=== PATIENT | male | born 1980 | race Caucasian/White ===

== ENCOUNTER 2016-09-29 17:16 | Emergency (ER) | payer MEDICAID, OTHER ==
[~2016-09-29] VITALS: Ht 172.7 cm; Wt 74.8 kg
--- NOTE | 2016-09-29 17:21 | NUR ---
PRESENTS SELDF TO ED DUE TO ASTHMA X 1 DAY, PATIENT SATING WELL ON ROOM AIR HOWEVER PATIENT APPEARS IN MILD DISTRESS,. NO CHEST PAIN OR DISCOMFORT NOTED. SKIN IS WARM TO TOUCH AND NON DIAPHORETIC. AFEBRILE. VSS
[2016-09-29] MEDS ORDERED: ALBUTEROL FS 2.5 MG/3 ML VIAL.NEB ONE (17:26)
[2016-09-29] MEDS ORDERED: IPRATROPIUM NEB FS 0.5 MG/2.5 ML AMPUL.NEB ONE (17:27)
[2016-09-29] MEDS ORDERED: ALBUTEROL FS 2.5 MG/0.5 ML VIAL.NEB NEB ONE (17:30)
[2016-09-29] MEDS ORDERED: IV NS 0.9% 1,000 ML BAG IV ONE (17:30)
[2016-09-29] MEDS ORDERED: IPRATROPIUM NEB FS 0.5 MG/2.5 ML AMPUL.NEB NEB ONE (17:30)
--- NOTE | 2016-09-29 17:35 | NUR ---
RT AT BEDSIDE FOR BREATHING TREATMENT
[2016-09-29] MEDS ORDERED: methylPREDNISolone SOD SUCC 125 MG/2ML VIAL ONE (17:38)
[2016-09-29] MEDS ORDERED: IV SET PRIMARY 1 EA INFUS.SET MC ONE (17:39)
[2016-09-29] MEDS ORDERED: IV NS 0.9% 1,000 ML ONE (17:39)
[2016-09-29] MEDS: methylPREDNISolone SOD SUCC 125 MG/2ML VIAL IV ONE ×2 (17:43→17:44)
--- NOTE | 2016-09-29 17:44 | NUR ---
MEDICATED PT ORDERED
[2016-09-29 19:02] VITALS: BP 130/78
--- NOTE | 2016-09-29 19:03 | NUR ---
Patient discharged to home in stable condition. Written and verbal after care instructions given. Patient verbalizes understanding of instruction.IV removed. Catheter intact and site benign. Pressure and 4x4 applied to site. No bleeding noted.
== END 2016-09-29 19:03 | disposition home or self-care (01) ==
LOC: ER 17:19
DX: J45.909 Unspecified asthma, uncomplicated (principal); I10 Essential (primary) hypertension; F17.210 Nicotine dependence, cigarettes, uncomplicated
CPT/HCPCS: 71010; 94644; 96361; 96374; 99285; A4606; J2930; J7030; Z7610

== ENCOUNTER 2016-10-25 15:42 | Emergency (ER) | payer OTHER ==
[~2016-10-25] VITALS: Ht 177.8 cm; Wt 79.4 kg
[2016-10-25 15:44] VITALS: BP 134/63
[2016-10-25] MEDS ORDERED: predniSONE 20 MG TABLET ONE (15:55)
[2016-10-25] MEDS ORDERED: IPRATROPIUM NEB FS 0.5 MG/2.5 ML AMPUL.NEB ONE (15:57)
[2016-10-25] MEDS ORDERED: ALBUTEROL FS 2.5 MG/3 ML VIAL.NEB ONE (15:57)
[2016-10-25] MEDS ORDERED: IPRATROPIUM NEB FS 0.5 MG/2.5 ML AMPUL.NEB NEB ONE (16:00)
[2016-10-25] MEDS ORDERED: predniSONE 20 MG TABLET PO ONE (16:00)
[2016-10-25] MEDS ORDERED: ALBUTEROL FS 2.5 MG/3 ML VIAL.NEB NEB ONE (16:00)
== END 2016-10-25 16:45 | disposition home or self-care (01) ==
LOC: ER 15:45
DX: J45.909 Unspecified asthma, uncomplicated (principal); I10 Essential (primary) hypertension; F17.210 Nicotine dependence, cigarettes, uncomplicated; Z91.048 Other nonmedicinal substance allergy status
CPT/HCPCS: A4606; Z7610

== ENCOUNTER 2017-03-14 18:59 | Emergency (ER) | payer OTHER ==
[~2017-03-14] VITALS: Ht 180.3 cm; Wt 81.6 kg
[2017-03-14 19:06] VITALS: BP 140/93
== END 2017-03-14 19:20 | disposition home or self-care (01) ==
LOC: ER 19:02
DX: J45.909 Unspecified asthma, uncomplicated (principal); I10 Essential (primary) hypertension
CPT/HCPCS: A4606; Z7610

== ENCOUNTER 2017-04-05 19:17 | Emergency (ER) | payer OTHER ==
[~2017-04-05] VITALS: Ht 180.3 cm; Wt 83.9 kg
[2017-04-05 19:24] VITALS: BP 144/80
== END 2017-04-05 20:04 | disposition home or self-care (01) ==
LOC: ER 19:21
DX: Z76.0 Encounter for issue of repeat prescription (principal); R06.02 Shortness of breath; J45.909 Unspecified asthma, uncomplicated; I10 Essential (primary) hypertension; F19.10 Other psychoactive substance abuse, uncomplicated; F17.210 Nicotine dependence, cigarettes, uncomplicated; Z88.8 Allergy status to other drugs, medicaments and biological substances
CPT/HCPCS: 99283; A4606; Z7610

== ENCOUNTER 2017-05-26 18:40 | Emergency (ER) | payer OTHER ==
[~2017-05-26] VITALS: Ht 180.3 cm; Wt 83.5 kg
--- NOTE | 2017-05-26 18:45 | NUR ---
CALLED PT NAME IN WR. NO RESPONSE AT THIS TIME. PER ADMITTING PT IN RESTROOM
[2017-05-26 19:04] VITALS: BP 140/92
== END 2017-05-26 19:21 | disposition home or self-care (01) ==
LOC: ER 18:42
DX: Z76.0 Encounter for issue of repeat prescription (principal); J45.901 Unspecified asthma with (acute) exacerbation; I10 Essential (primary) hypertension; F19.10 Other psychoactive substance abuse, uncomplicated; F17.210 Nicotine dependence, cigarettes, uncomplicated
CPT/HCPCS: A4606; Z7610

== ENCOUNTER 2017-06-30 01:49 | Emergency (ER) | payer OTHER ==
[~2017-06-30] VITALS: Ht 180.3 cm; Wt 88.5 kg
[2017-06-30 01:55] VITALS: BP 145/93
--- NOTE | 2017-06-30 02:05 | NUR ---
DR. ELIZABETH AT BEDSIDE FOR EVAL.
== END 2017-06-30 02:13 | disposition home or self-care (01) ==
LOC: ER 01:49
DX: Z76.0 Encounter for issue of repeat prescription (principal); I10 Essential (primary) hypertension; J45.909 Unspecified asthma, uncomplicated; F17.210 Nicotine dependence, cigarettes, uncomplicated
CPT/HCPCS: 99283; A4606; Z7610

== ENCOUNTER 2017-07-30 05:07 | Emergency (ER) | payer OTHER ==
[~2017-07-30] VITALS: Ht 180.3 cm; Wt 88.5 kg
[2017-07-30 05:07] VITALS: BP 138/76
[2017-07-30] MEDS ORDERED: IBUPROFEN 400 MG TABLET ONE (05:18)
[2017-07-30] MEDS ORDERED: IBUPROFEN 400 MG TABLET PO ONE (05:30)
== END 2017-07-30 05:40 | disposition home or self-care (01) ==
LOC: ER 05:10
DX: F41.9 Anxiety disorder, unspecified (principal); I10 Essential (primary) hypertension; J45.909 Unspecified asthma, uncomplicated; F17.200 Nicotine dependence, unspecified, uncomplicated
CPT/HCPCS: 99284; A4606; Z7610

== ENCOUNTER 2019-03-23 11:32 | Emergency (ER) | payer OTHER ==
[~2019-03-23] VITALS: Ht 188 cm; Wt 88.5 kg
--- NOTE | 2019-03-23 11:35 | NUR ---
called for triage not in the waiting room.
--- NOTE | 2019-03-23 11:45 | NUR ---
"C/O CHEST PAIN RADIATING TO UPPER BACK 11/29 PS" PT AAOX4, PT ON MONITOR, VSS, NAD NOTED, PENDING MD SPRING
[2019-03-23] MEDS ORDERED: Magnesium 1GM/D5W 100ML PREMIX 200 ML IV ONE (12:23)
[2019-03-23] MEDS ORDERED: IPRATROPIUM NEB FS 0.5 MG/2.5 ML AMPUL.NEB ONE (12:29)
[2019-03-23] MEDS ORDERED: ALBUTEROL FS 2.5 MG/3 ML VIAL.NEB ONE (12:29)
[2019-03-23] MEDS ORDERED: ALBUTEROL FS 2.5 MG/3 ML VIAL.NEB NEB ONE (12:30)
[2019-03-23] MEDS ORDERED: methylPREDNISolone SOD SUCC 125 MG/2ML VIAL IV ONE (12:30)
[2019-03-23] MEDS ORDERED: IPRATROPIUM NEB FS 0.5 MG/2.5 ML AMPUL.NEB NEB ONE (12:30)
[2019-03-23] MEDS ORDERED: Magnesium 1GM/D5W 100ML PREMIX 100 ML IV ONE (12:32)
[2019-03-23] MEDS ORDERED: methylPREDNISolone SOD SUCC 125 MG/2ML VIAL ONE (12:32)
[2019-03-23 12:41] LABS: BASOPHILS # (AUTO) 0.1 /CMM (0.0-0.2); BASOPHILS % (AUTO) 1.1 % (0.0-2.0); EOSINOPHILS % (AUTO) 3.1 % (0.0-6.0); HEMATOCRIT 43 % (39-51); HEMOGLOBIN 14.5 g/dL (13.5-17.5); LYMPHOCYTES # (AUTO) 3.3 /CMM (0.8-4.8); LYMPHOCYTES % (AUTO) 29.6 % (20.0-44.0); MEAN CORPUSCULAR HGB CONC 34 g/dl (31.0-36.0); MEAN CORPUSCULAR VOLUME 85 fL (80-96); MONOCYTES # (AUTO) 0.9 /CMM (0.1-1.30); NEUTROPHILS # (AUTO) 6.4 /CMM (1.8-8.9); NEUTROPHILS % (AUTO) 58.2 % (43.0-81.0); PLATELET COUNT (AUTO) 399 /CMM (150-450); RED BLOOD CELL COUNT(AUTO) 5.03 MIL/uL (4.5-6.0)
[2019-03-23 12:46] LABS: CALCIUM, SERUM 9.3 mg/dL (8.5-10.1); CREATININE 1.5 mg/dL (0.6-1.3); POTASSIUM 3.8 mmol/L (3.5-5.1)
[2019-03-23 14:00] VITALS: BP 132/95
--- NOTE | 2019-03-23 14:47 | NUR ---
Patient discharged to home in stable condition. Written and verbal after care instructions given. Patient verbalizes understanding of instruction. IV removed. Catheter intact and site benign. Pressure and 4x4 applied to site. No bleeding noted.
== END 2019-03-23 14:49 | disposition home or self-care (01) ==
LOC: ER 11:32
DX: J45.901 Unspecified asthma with (acute) exacerbation (principal); I10 Essential (primary) hypertension; F17.200 Nicotine dependence, unspecified, uncomplicated
CPT/HCPCS: 36415; 71045; 80048; 85025; 93005; 94640; 96365; 96375; 99284; J2930; J3475

== ENCOUNTER 2019-12-06 10:17 | Emergency (ER) | payer OTHER ==
[~2019-12-06] VITALS: Ht 180.3 cm; Wt 88.5 kg
--- NOTE | 2019-12-06 10:20 | NUR ---
patient came in to the er c/o RLQ pain, nausea vomiting x 2 weeks, 7/10 pain scale. On room air, breathing evenly and unlabored. connected to the monitor and pulse ox. kept comfortable, will continue to monitor accordingly.
[2019-12-06] MEDS ORDERED: ONDANSETRON HCL/PF 4 MG/2 ML VIAL ONE (10:43)
[2019-12-06] MEDS ORDERED: MORPHINE SULFATE INJ 4 MG/ML DISP.SYRIN ONE (10:43)
[2019-12-06 10:58] LABS: BASOPHILS # (AUTO) 0.1 /CMM (0.0-0.2); BASOPHILS % (AUTO) 0.7 % (0.0-2.0); EOSINOPHILS % (AUTO) 2.7 % (0.0-6.0); HEMATOCRIT 46 % (39-51); HEMOGLOBIN 14.7 g/dL (13.5-17.5); LYMPHOCYTES # (AUTO) 2.6 /CMM (0.8-4.8); LYMPHOCYTES % (AUTO) 18.6 % (20.0-44.0); MEAN CORPUSCULAR HGB CONC 32 g/dl (31.0-36.0); MEAN CORPUSCULAR VOLUME 84 fL (80-96); MONOCYTES # (AUTO) 1.2 /CMM (0.1-1.30); MONOCYTES % (AUTO) 8.2 % (2.0-12.0); NEUTROPHILS # (AUTO) 9.9 /CMM (1.8-8.9); NEUTROPHILS % (AUTO) 69.8 % (43.0-81.0); PLATELET COUNT (AUTO) 431 /CMM (150-450); RED BLOOD CELL COUNT(AUTO) 5.52 MIL/uL (4.5-6.0); WHITE BLOOD COUNT (AUTO) 14.2 K/uL (4.3-11.0)
[2019-12-06] MEDS ORDERED: IV NS 0.9% 1,000 ML BAG IV ONE (11:00)
[2019-12-06] MEDS ORDERED: MORPHINE SULFATE INJ 2 MG/ML DISP.SYRIN IV ONE (11:00)
[2019-12-06] MEDS ORDERED: ONDANSETRON HCL/PF 4 MG/2 ML VIAL IVP ONE (11:00)
[2019-12-06 11:03] LABS: CALCIUM, SERUM 9.3 mg/dL (8.5-10.1); CREATININE 1.3 mg/dL (0.6-1.3); POTASSIUM 4.3 mmol/L (3.5-5.1)
[2019-12-06 11:08] LABS: ALBUMIN 3.4 g/dL (3.4-5.0); BILIRUBIN,DIRECT 0.3 mg/dL (0.0-0.2); BILIRUBIN,TOTAL 1.1 mg/dL (0.2-1.0)
[2019-12-06 12:16] LABS: APPEARANCE,URINE Clear (CLEAR); BILIRUBIN,URINE Negative (NEGATIVE); BLOOD, URINE Negative Ery/uL (NEGATIVE); COLOR,URINE Yellow (YELLOW); KETONES,URINE Negative (NEGATIVE); LEUKOCYTE ESTERASE ,URINE Negative (NEGATIVE); NITRITE, URINE Negative (NEGATIVE); PROTEIN,URINE Negative (NEGATIVE); UGLUCOSE Negative (NEGATIVE)
[2019-12-06 12:25] LABS: BACTERIA,URINE Rare /HPF (None Seen); RBC,URINE 0-2 /HPF (0-2); SQUAMOUS EPITHELIAL CELL,UR Rare /HPF (None Seen); WBC,URINE 0-2 /HPF (0-3)
--- NOTE | 2019-12-06 12:55 | NUR ---
GAVE MOVESHEET AND CLINICALS TO ADMITTING FOR INSURANCE AUTH
--- NOTE | 2019-12-06 13:15 | NUR ---
Nik levin in [facility] - 12/06/19 at 1339 by MARIS GAVE MOVESHEET AND CLINICALS TO ADMITTING FOR INSURANCE AUTH
--- NOTE | 2019-12-06 15:10 | NUR ---
CALLED [facility] PAGED SHELL
--- NOTE | 2019-12-06 15:26 | NUR ---
SPOKE TO [facility], [place], [facility], STATES WILL LOOK FOR OUTPATIENT CANCER TX FOR PT, FAXED CLINICALS
--- NOTE | 2019-12-06 15:28 | NUR ---
PER DR CHANEY, PATIENT DOESN'T NEED TO BE ADMITTED BUT NEEDS AN APPOINTMENT FOR AN ONCOLOGY CLINIC AND [facility] REINSPECTOR ARE TRYING TO SECURE.
--- NOTE | 2019-12-06 16:33 | NUR ---
oncologist MD Dr. Hastings appointment date thursday12/13/19 9am [phone] eileen
[2019-12-06 17:26] VITALS: BP 140/71
--- NOTE | 2019-12-06 17:26 | NUR ---
Patient discharged to home in stable condition. Written and verbal after care instructions given. Patient verbalizes understanding of instruction.
== END 2019-12-06 17:26 | disposition home or self-care (01) ==
LOC: ER 10:18
DX: R10.31 Right lower quadrant pain (principal); K63.9 Disease of intestine, unspecified; I10 Essential (primary) hypertension; J45.909 Unspecified asthma, uncomplicated; F17.200 Nicotine dependence, unspecified, uncomplicated
CPT/HCPCS: 36415; 74177; 80048; 80076; 81001; 83690; 85025; 87081; 96361; 96374; 96375; 99285; J2270; J2405; J7030; 81000-TC

== ENCOUNTER 2019-12-30 10:34 | Emergency (ER) | payer OTHER ==
[~2019-12-30] VITALS: Ht 177.8 cm; Wt 74.4 kg
--- NOTE | 2019-12-30 10:54 | NUR ---
DR MARCANO AT BEDSIDE FOR EVAL.
--- NOTE | 2019-12-30 11:00 | NUR ---
URINE SPECIMEN COLLECTED AND SENT TO LAB.
[2019-12-30 11:08] LABS: APPEARANCE,URINE Slightly Cloudy (CLEAR); BILIRUBIN,URINE Negative (NEGATIVE); BLOOD, URINE Large Ery/uL (NEGATIVE); COLOR,URINE Dark (YELLOW); KETONES,URINE Negative (NEGATIVE); LEUKOCYTE ESTERASE ,URINE Negative (NEGATIVE); NITRITE, URINE Negative (NEGATIVE); PROTEIN,URINE 30 mg/dl (NEGATIVE); UGLUCOSE Negative (NEGATIVE)
[2019-12-30 11:10] LABS: RBC,URINE TOO NUMEROUS TO COUN /HPF (0-2)
[2019-12-30 11:11] LABS: BACTERIA,URINE Rare /HPF (None Seen); SQUAMOUS EPITHELIAL CELL,UR Few /HPF (None Seen)
[2019-12-30] MEDS ORDERED: KETOROLAC TROMETHAMINE 15 MG/ML VIAL ONE (11:32)
[2019-12-30] MEDS: KETOROLAC TROMETHAMINE INJ 30 MG/ML VIAL IV ONE (11:36)
[2019-12-30 11:49] LABS: BASOPHILS # (AUTO) 0.1 /CMM (0.0-0.2); BASOPHILS % (AUTO) 0.9 % (0.0-2.0); EOSINOPHILS % (AUTO) 0.9 % (0.0-6.0); HEMATOCRIT 42 % (39-51); HEMOGLOBIN 13.7 g/dL (13.5-17.5); LYMPHOCYTES % (AUTO) 15.8 % (20.0-44.0); MEAN CORPUSCULAR HGB CONC 33 g/dl (31.0-36.0); MEAN CORPUSCULAR VOLUME 82 fL (80-96); MONOCYTES % (AUTO) 8.1 % (2.0-12.0); NEUTROPHILS # (AUTO) 9.4 /CMM (1.8-8.9); NEUTROPHILS % (AUTO) 74.3 % (43.0-81.0); PLATELET COUNT (AUTO) 394 /CMM (150-450); RED BLOOD CELL COUNT(AUTO) 5.09 MIL/uL (4.5-6.0); WHITE BLOOD COUNT (AUTO) 12.7 K/uL (4.3-11.0)
[2019-12-30 11:52] LABS: CALCIUM, SERUM 8.7 mg/dL (8.5-10.1); CREATININE 1.3 mg/dL (0.6-1.3); POTASSIUM 4.2 mmol/L (3.5-5.1)
[2019-12-30 11:57] LABS: ALBUMIN 3.1 g/dL (3.4-5.0); BILIRUBIN,TOTAL 1.5 mg/dL (0.2-1.0); TOTAL PROTEIN, SERUM 8.2 g/dL (6.4-8.2)
[2019-12-30] MEDS ORDERED: ONDANSETRON HCL/PF 4 MG/2 ML VIAL ONE (12:05)
[2019-12-30] MEDS ORDERED: MORPHINE SULFATE INJ 4 MG/ML DISP.SYRIN ONE (12:06)
[2019-12-30] MEDS: IV NS 0.9% 1,000 ML IV ONE (12:12)
[2019-12-30] MEDS: ONDANSETRON HCL/PF 4 MG/2 ML VIAL IV ONE (12:12)
[2019-12-30] MEDS: MORPHINE SULFATE INJ 2 MG/ML DISP.SYRIN IV ONE (12:13)
--- NOTE | 2019-12-30 12:14 | NUR ---
PT TO RADIOLOGY FOR ABDOMINAL CT SCAN VIA WHEELCHAIR.
[2019-12-30] MEDS ORDERED: IOHEXOL-300 100 ML VIAL IV ONE (12:16)
[2019-12-30] MEDS ORDERED: IV NS 0.9% 250 ML IV ONE (12:16)
[2019-12-30] MEDS ORDERED: CT SWABBABLE VALVE TRANS SET 1 EA INFUS.SET MC ONE (12:16)
[2019-12-30 14:09] VITALS: BP 145/82
== END 2019-12-30 14:13 | disposition home or self-care (01) ==
LOC: ER 10:37
DX: R31.9 Hematuria, unspecified (principal); G89.29 Other chronic pain; R10.31 Right lower quadrant pain; E80.6 Other disorders of bilirubin metabolism; R74.0 Nonspecific elevation of levels of transaminase and lactic acid dehydrogenase [LDH]; C78.7 Secondary malignant neoplasm of liver and intrahepatic bile duct; C18.9 Malignant neoplasm of colon, unspecified; J45.909 Unspecified asthma, uncomplicated; I10 Essential (primary) hypertension
CPT/HCPCS: 36415; 74177; 80053; 81001; 85025; 96372; 96374; 96375; 99285; J1885; J2270; J2405; J7030; J7050; Q9967; 81000-TC

== ENCOUNTER 2020-02-18 17:34 | Emergency (ER) | payer OTHER ==
[~2020-02-18] VITALS: Ht 177.8 cm; Wt 86.2 kg
[2020-02-18 18:47] LABS: OCCULT BLOOD STOOL NEGATIVE (NEGATIVE)
--- NOTE | 2020-02-18 18:56 | NUR ---
pt r ec'd to er c/o no em for 2 days vomitted once today abd pain5/10 iv started 20g rt ac labs drawn sent o lab
[2020-02-18 19:12] LABS: BASOPHILS # (AUTO) 0.1 /CMM (0.0-0.2); BASOPHILS % (AUTO) 0.8 % (0.0-2.0); EOSINOPHILS % (AUTO) 1.3 % (0.0-6.0); HEMATOCRIT 40 % (39-51); HEMOGLOBIN 12.7 g/dL (13.5-17.5); LYMPHOCYTES # (AUTO) 2.2 /CMM (0.8-4.8); MEAN CORPUSCULAR HGB CONC 32 g/dl (31.0-36.0); MEAN CORPUSCULAR VOLUME 80 fL (80-96); MONOCYTES # (AUTO) 1.2 /CMM (0.1-1.30); MONOCYTES % (AUTO) 7.7 % (2.0-12.0); NEUTROPHILS # (AUTO) 11.9 /CMM (1.8-8.9); NEUTROPHILS % (AUTO) 76.2 % (43.0-81.0); PLATELET COUNT (AUTO) 425 /CMM (150-450); RED BLOOD CELL COUNT(AUTO) 5.05 MIL/uL (4.5-6.0); WHITE BLOOD COUNT (AUTO) 15.6 K/uL (4.3-11.0)
[2020-02-18 19:15] LABS: CALCIUM, SERUM 9.1 mg/dL (8.5-10.1); CREATININE 1.1 mg/dL (0.6-1.3); POTASSIUM 4.1 mmol/L (3.5-5.1)
[2020-02-18 19:19] LABS: ALBUMIN 2.9 g/dL (3.4-5.0); BILIRUBIN,DIRECT 0.5 mg/dL (0.0-0.2); BILIRUBIN,TOTAL 1.2 mg/dL (0.2-1.0); TOTAL PROTEIN, SERUM 9.1 g/dL (6.4-8.2)
--- NOTE | 2020-02-18 19:52 | NUR ---
Patient discharged to home in stable condition. Written and verbal after care instructions given. Patient verbalizes understanding of instruction.
--- NOTE | 2020-02-18 19:52 | NUR ---
IV removed. Catheter intact and site benign. Pressure and 4x4 applied to site. No bleeding noted.
[2020-02-18 21:09] VITALS: BP 133/78
== END 2020-02-18 19:52 | disposition home or self-care (01) ==
LOC: ER 17:41
DX: K59.00 Constipation, unspecified (principal); G89.29 Other chronic pain; R10.31 Right lower quadrant pain; I10 Essential (primary) hypertension; J45.909 Unspecified asthma, uncomplicated; F17.200 Nicotine dependence, unspecified, uncomplicated
CPT/HCPCS: 36415; 74018; 80048; 80076; 82272; 85025; 85730; 99284; J7030; J7040

== ENCOUNTER 2020-03-08 21:29 | Emergency (ER) | payer OTHER ==
[~2020-03-08] VITALS: Ht 180.3 cm; Wt 86.2 kg
[2020-03-08 21:29] VITALS: BP 131/100
== END 2020-03-08 22:18 | disposition home or self-care (01) ==
LOC: ER 21:33
DX: K59.00 Constipation, unspecified (principal); Z76.0 Encounter for issue of repeat prescription; I10 Essential (primary) hypertension; J45.909 Unspecified asthma, uncomplicated